=== PATIENT | male | born 1985 ===

== ENCOUNTER → 2019-04-15 | Outpatient (CLI) | payer OTHER ==
--- NOTE | 2019-04-16 10:52 | SLEEP ---
DATE OF STUDY: 04/15/2019 SLEEP STUDY ATTENDING PHYSICIAN: Sahra Ty MD The patient is a 33-year-old who weighs 168 pounds with a BMI of 25. The patient's [place] score was 4. The patient underwent a sleep study performed at [facility]. This was a diagnostic study. During the night study, the patient spent 416 minutes in bed and slept for 388 minutes with a sleep efficiency of 93%. Sleep latency was 8 minutes with a REM latency of 141 minutes. Sleep architecture showed normal stage 1 and stage 2 sleep, normal slow wave and normal REM sleep. During the night study, the patient had 2 obstructive apneas, 3 mixed and 3 central apneas and 5 hypopneas. The patient's apnea-hypopnea index with entire night was only 2 per hour with a supine index of 2 per hour and REM index of 7 per hour. EKG monitoring revealed normal sinus rhythm, average heart rate 71 beats per minute, no arrhythmias observed. Nocturnal oximetry study did not reveal any clinically significant desaturations. No PLMS observed. Due to low AHI, the patient did not meet the split night criteria for CPAP initiation. IMPRESSION: 1. No clinically significant sleep disorder breathing. The patient's apnea-hypopnea index for the entire night was 2 per hour. 2. No clinically significant nocturnal hypoxia. 3. No clinically significant periodic limb movements. RECOMMENDATIONS: 1. The patient did not meet the criteria for CPAP initiation. 2. Avoid [employer] depressants. LANRE ESQUEDA MD DR: BAHMAN/alma JOB#: [id number] / [id number] SAHRA Dixon MD
== END | disposition home or self-care (01) ==
LOC: SLPLAB 19:00
PROVIDERS: ATTEND Family Medicine
DX: G47.33 Obstructive sleep apnea (adult) (pediatric) (principal)
CPT/HCPCS: 95810